=== PATIENT | male | born 1965 | race Caucasian/White ===

== ENCOUNTER 2016-11-09 16:03 | Outpatient (CLI) | payer BC ==
[2016-11-09 16:43] LABS: Hemoglobin 15.7 g/dL (14.0-18.0); Mean Corpuscular HGB CONC 33.9 g/dL (32.0-36.0); Mean Corpuscular Hemoglobin 29.5 pg (27.0-31.0); Mean Corpuscular Volume 87.1 fl (80.0-94.0); Mean Platelet Volume 6.6 fL (7.4-10.4); Platelet Count 296 thou/uL (130-400); RBC Distribution Width 11.1 % (11.5-14.5); Red Blood Cell (RBC) Count 5.31 mill/uL (4.70-6.10); White Blood Cell (WBC) Count 8.1 thou/uL (4.8-10.8)
[2016-11-09 16:57] LABS: Bilirubin Negative (Negative); Blood, Urine Negative (Negative); Clarity Clear (Clear); Glucose, Urine (Dipstick) Negative (Negative); Leukocyte Negative (Negative); Nitrite Negative (Negative); Protein, Urine (Dipstick) Negative (Neg-Trace); Specific Gravity, Urine 1.025 (1.005-1.030); Urobilinogen 0.2 mg/dL (0.2-1.0)
--- NOTE | 2016-11-09 17:40 | RAD ---
CHEST TWO VIEWS: 11/09/16 Comparison is made with the 04/13/08 study. The heart is normal in size and the lungs are clear. There are no signs of pneumonia. The mediastinu m appears normal and the trachea is midline. IMPRESSION: No acute thoracic findings. POS: HOME
== END 2016-11-09 16:04 | disposition home or self-care (01) ==
LOC: BURRAD 16:03
PROVIDERS: ATTEND Family Medicine
DX: R50.9 Fever, unspecified (principal)
CPT/HCPCS: 36415; 71020; 81003; 85027; 87040

== ENCOUNTER 2021-04-09 10:21 | Emergency (ER) | payer BC ==
[2021-04-09 11:05] LABS: #Lymphocytes 0.4 thou/uL (1.20-3.40); #Monocytes 0.5 thou/uL (0.11-0.59); #Neutrophils 8.5 thou/uL (1.40-6.50); %Basophils 0.3 % (0.0-1.0); %Eosinophils 0.2 % (0.0-10.0); %Lymphocytes 4.7 % (21.0-51.0); %Monocytes 4.7 % (0.0-10.0); %Neutrophils 90.1 % (42.0-75.0); Hemoglobin 16.5 g/dL (14.0-18.0); Mean Corpuscular HGB CONC 34.9 g/dL (32.0-36.0); Mean Corpuscular Hemoglobin 30.2 pg (27.0-31.0); Mean Corpuscular Volume 86.5 fL (78.0-98.0); Mean Platelet Volume 7.1 fL (7.4-10.4); Platelet Count 160 thou/uL (130-400); RBC Distribution Width 10.8 % (11.5-14.5); Red Blood Cell (RBC) Count 5.46 mill/uL (4.70-6.10); White Blood Cell (WBC) Count 9.5 thou/uL (4.8-10.8)
[2021-04-09 11:20] LABS: ALT (SGPT) 15 U/L (8-55); AST (SGOT) 16 U/L (5-34); Albumin 4.5 g/dL (3.5-5.0); Alkaline Phosphatase 57 U/L (40-110); Anion Gap 14 mmol/L (10-20); BUN (Urea Nitrogen) 23 mg/dL (8.4-25.7); Bilirubin, Total 0.5 mg/dL (0.2-1.2); Calc. Creatinine Clearance 0 mL/min (70-130); Calcium 9.5 mg/dL (7.8-10.44); Carbon Dioxide 27 mmol/L (22-29); Chloride 104 mmol/L (98-107); Globulin 2.9 g/dL (2.4-3.5); Glucose 159 mg/dL (70-105); Potassium 4.8 mmol/L (3.5-5.1); Protein, Total 7.4 g/dL (6.0-8.3); Sodium 140 mmol/L (136-145)
[2021-04-10 10:35] LABS: SARS-CoV-2 PCR by NAA DETECTED (NotDetected)
== END 2021-04-09 11:59 | disposition home or self-care (01) ==
LOC: BURERS 10:21
DX: U07.1 COVID-19 (principal); R55 Syncope and collapse; E78.5 Hyperlipidemia, unspecified; I10 Essential (primary) hypertension; M06.9 Rheumatoid arthritis, unspecified
CPT/HCPCS: 36415; 80053; 84484; 85025; 99284; U0003; U0005

== ENCOUNTER 2023-02-01 10:54 | Emergency (ER) | payer BC ==
[2023-02-01] MEDS ORDERED: Lidocaine 1%/Epinephrine 1:100K 10 ML VIAL ONE ×2 (11:01)
[2023-02-01] MEDS ORDERED: Morphine 4 MG/ML VIAL ONE (11:03)
[2023-02-01] MEDS ORDERED: Ondansetron PF 4 MG/2 ML Vial ONE (11:07)
[2023-02-01] MEDS ORDERED: Boostrix 0.5 ML (Tdap) VIAL (>/=7 yrs of age) ONE (12:20)
== END 2023-02-01 12:40 | disposition home or self-care (01) ==
LOC: BURERS 10:54
DX: S81.812A Laceration without foreign body, left lower leg, initial encounter (principal); E78.5 Hyperlipidemia, unspecified; I10 Essential (primary) hypertension; Z23 Encounter for immunization; W26.9XXA Contact with unspecified sharp object(s), initial encounter
CPT/HCPCS: 12002; 90471; 90715; 96374; 96375; J2270; J2405